=== PATIENT | male | born 1990 | race Caucasian/White ===

== ENCOUNTER 2019-10-09 15:23 | Emergency (ER) | payer SELFPAY ==
[~2019-10-09] VITALS: Ht 182.9 cm; Wt 88.0 kg
[2019-10-09 19:33] VITALS: BP 139/88
== END 2019-10-09 20:19 | disposition home or self-care (01) ==
LOC: EDSEX 15:23 → ER 15:23
DX: S43.101A Unspecified dislocation of right acromioclavicular joint, initial encounter (principal); Z88.8 Allergy status to other drugs, medicaments and biological substances; W19.XXXA Unspecified fall, initial encounter; Y93.89 Activity, other specified; Y99.8 Other external cause status; Y92.89 Other specified places as the place of occurrence of the external cause